=== PATIENT | female | born 1950 | race Caucasian/White ===

== ENCOUNTER 2020-12-18 07:27 | Emergency (ER) | payer OTHER ==
[~2020-12-18] VITALS: Ht 157.5 cm; Wt 86.2 kg
[2020-12-18 07:30] VITALS: BP 159/84
--- NOTE | 2020-12-18 07:33 | NUR ---
PATIENT AMBULATED TO BED 11
[2020-12-18] MEDS ORDERED: KETOROLAC 60 MG/2 ML VIAL IM ONE (07:40)
--- NOTE | 2020-12-18 07:44 | NUR ---
DR. MONSALVE BEDSIDE EVALUATING PT
--- NOTE | 2020-12-18 07:55 | NUR ---
70/F BIB DAUGHTER WITH C/O LEFT SIDED BACK AND CHEST PAIN SINCE YESTERDAY MORNING, STATING TODAY SHE WOKE UP WITH LEFT ARM PAIN WELL. DENIES INJURY, TRAUMA, NUMBNESS OR TINGLING. PT DENIES ANY SOB AT THIS TIME. PT STATED PAIN IS CURRENTLY 8/10 AND "POKING LIKE PAIN." SKIN DRY AND INTACT. EKG DONE ON PATIENT SHOWS NSR. MEDHX: DM, ARTHRITIS ALLERGIES: DENIES
[2020-12-18] MEDS ORDERED: ACET-8386 PO (08:11)
[2020-12-18 08:38] VITALS: BP 159/84
--- NOTE | 2020-12-18 08:39 | NUR ---
Patient discharged with v/s stable. Written and verbal after care instructions given and explained. Patient alert, oriented and verbalized understanding of instructions. Ambulatory with steady gait. All questions addressed prior to discharge. ID band removed. Patient advised to follow up with PMD. Rx of HYDROCODONE/ACETAMINOPHEN given. Patient educated on indication of medication including possible reaction and side effects. Opportunity to ask questions provided and answered.
== END 2020-12-18 08:36 | disposition home or self-care (01) ==
LOC: MED 07:27
DX: R07.89 Other chest pain (principal); M54.9 Dorsalgia, unspecified; M79.602 Pain in left arm; E11.9 Type 2 diabetes mellitus without complications; Z90.49 Acquired absence of other specified parts of digestive tract; Z98.890 Other specified postprocedural states
CPT/HCPCS: 93005; 96372; 99283; J1885

== ENCOUNTER 2020-12-28 06:30 | Emergency (ER) | payer OTHER ==
[~2020-12-28] VITALS: Ht 157.5 cm; Wt 87.5 kg
[~2020-12-28 06:30] MED LIST: ACET-8386 PO
[2020-12-28 06:37] VITALS: BP 135/73
--- NOTE | 2020-12-28 06:44 | NUR ---
patient to bed 12 ambulatory with cane
--- NOTE | 2020-12-28 07:29 | NUR ---
RECEIVED REPORT FROM CHRISTIANO FIGUEROA, ASSUMED CARE AT THIS TIME.
[2020-12-28 07:35] LABS: BASOPHILS % (AUTO) 0.6 % (0.0-2.0); EOSINOPHILS # (AUTO) 0.2 K/uL (0-0.4); EOSINOPHILS % (AUTO) 4.1 % (0.0-4.0); HEMATOCRIT 37.3 % (36-48); HEMOGLOBIN 12.1 g/dL (12.0-16.0); LYMPHOCYTES # (AUTO) 1.3 K/uL (2.5-16.5); LYMPHOCYTES % (AUTO) 27.3 % (20.5-51.1); MEAN CORPUSCULAR HEMOGLOBIN 27 pg (27-31); MEAN CORPUSCULAR HGB CONC 33 g/dL (33-37); MONOCYTES # (AUTO) 0.4 K/uL (0.8-1.0); MONOCYTES % (AUTO) 7.7 % (1.7-9.3); NEUTROPHILS # (AUTO) 2.8 K/uL (1.8-7.7); NEUTROPHILS % (AUTO) 60.3 % (42.2-75.2); PLATELET COUNT (AUTO) 156 K/uL (140-450); RED BLOOD CELL COUNT(AUTO) 4.55 MIL/uL (4.20-5.40); RED CELL DISTRIBUTION WIDTH 13.8 % (11.6-13.7); WHITE BLOOD COUNT (AUTO) 4.6 K/uL (4.8-10.8)
--- NOTE | 2020-12-28 07:46 | NUR ---
ULTRASOUND AT BEDSIDE.
[2020-12-28 08:10] LABS: ALBUMIN 3.3 g/dL (3.4-5.0); ANION GAP 12.6 (8-16); ASPARTATE AMINOTRANSFERASE 17 U/L (15-37); CARBON DIOXIDE 31.4 mmol/L (21-32); CHLORIDE 107 mmol/L (98-107); CREATININE 0.7 mg/dL (0.6-1.3); GLUCOSE 120 mg/dL (74-106); SODIUM SERUM 147 mmol/L (136-145); TOTAL BILIRUBIN 0.3 mg/dL (0.0-1.0); UREA NITROGEN, BLOOD 16 mg/dL (7-18)
[2020-12-28] MEDS ORDERED: CLINDAMYCIN 600 MG in DEXTROSE 5% 50 ML IV ONE (08:30)
[2020-12-28] MEDS ORDERED: CLINDAMYCIN 600 MG/4 ML VIAL ONE (08:40)
--- NOTE | 2020-12-28 08:54 | NUR ---
Blood cultures collected, walked to lab and handed to CPT Rahul
[2020-12-28] MEDS ORDERED: CLIN300C52 PO (11:15)
[2020-12-28] MEDS ORDERED: ACET-8386 PO (11:34)
[2020-12-28 11:42] VITALS: BP 131/58
[2020-12-28] MEDS ORDERED: MORPHINE SULFATE 4 MG/ML SYR ONE (11:48)
[2020-12-28] MEDS ORDERED: MORPHINE SULFATE 4 MG/ML SYR IVP ONE (11:50)
--- NOTE | 2020-12-28 12:31 | NUR ---
Patient discharged with v/s stable. Written and verbal after care instructions ABOUT CELLULITIS given and explained. Patient alert, oriented and verbalized understanding of instructions. Ambulatory with steady gait. All questions addressed prior to discharge. ID band removed. Patient advised to follow up with PMD. Rx of CLINDAMYCIN HCL given. Patient educated on indication of medication including possible reaction and side effects. Opportunity to ask questions provided and answered. Addendum: 12/28/20 at 1303 by [email or web address] AND NORCO 5-325 WAS GIVEN
== END 2020-12-28 12:31 | disposition home or self-care (01) ==
LOC: MED 06:30
DX: L03.115 Cellulitis of right lower limb (principal); E11.9 Type 2 diabetes mellitus without complications; Z79.2 Long term (current) use of antibiotics; Z79.891 Long term (current) use of opiate analgesic
CPT/HCPCS: 36415; 73590; 80053; 85025; 87040; 93971; 96365; 96375; 99285; J2270; J3490; Q0092

== ENCOUNTER 2020-12-30 12:36 | Emergency (ER) | payer OTHER ==
[~2020-12-30] VITALS: Ht 160 cm; Wt 86.8 kg
[~2020-12-30 12:36] MED LIST changes: +CLIN300C52 PO
[2020-12-30 13:04] VITALS: BP 133/87
[2020-12-30] MEDS ORDERED: MORPHINE SULFATE 4 MG/ML SYR IM ONE (13:30)
--- NOTE | 2020-12-30 13:35 | NUR ---
PT TAKEN TO XRAY AT THIS TIME
--- NOTE | 2020-12-30 13:49 | NUR ---
70 Y/O F BIB SELF FOR RECHECK. SEEN HERE 12/28/20 FOR RIGHT LOWER LEG CELLULITIS. BLOOD SUGAR 107 AT THIS TIME. DENIES N/V/D; SKIN IS PINK/WARM/DRY; AAOX4; LUNGS CLEAR BL; HR EVEN AND REGULAR; PT DENIES ANY FEVER, CP, SOB, OR COUGH AT THIS TIME; PATIENT STATES PAIN OF 8/10 AT THIS TIME; VSS; ER MD MADE AWARE OF PT STATUS. PMH: ETTA ORTEGA
[2020-12-30] MEDS ORDERED: LID5T TP (14:17)
[2020-12-30] MEDS ORDERED: NAPR-54 PO (14:17)
[2020-12-30 14:33] VITALS: BP 133/87
--- NOTE | 2020-12-30 14:34 | NUR ---
Patient discharged with v/s stable. Written and verbal after care instructions given MEDICAL SCREENING EXAM and explained. Patient alert, oriented and verbalized understanding of instructions. Ambulatory with steady gait. All questions addressed prior to discharge. ID band removed. Patient advised to follow up with PMD. Rx of NAPROXEN AND LIDOCAINE PATCHES given. Patient educated on indication of medication including possible reaction and side effects. Opportunity to ask questions provided and answered.
== END 2020-12-30 14:33 | disposition home or self-care (01) ==
LOC: MED 12:36
DX: M79.661 Pain in right lower leg (principal); E11.9 Type 2 diabetes mellitus without complications; Z96.653 Presence of artificial knee joint, bilateral; Z98.51 Tubal ligation status; Z98.890 Other specified postprocedural states; Z79.899 Other long term (current) drug therapy; Z79.1 Long term (current) use of non-steroidal anti-inflammatories (NSAID); Z79.891 Long term (current) use of opiate analgesic; Z79.2 Long term (current) use of antibiotics
CPT/HCPCS: 73610; 93971; 96372; 99284; J2270

== ENCOUNTER 2021-01-15 11:11 | Emergency (ER) | payer OTHER ==
[~2021-01-15] VITALS: Ht 162.6 cm; Wt 86.2 kg
[~2021-01-15 11:11] MED LIST changes: +LID5T TP; +NAPR-54 PO
[2021-01-15 11:18] VITALS: BP 136/103
--- NOTE | 2021-01-15 11:25 | NUR ---
Patient ambulated to bed 03 with steady/even gait.
--- NOTE | 2021-01-15 11:35 | NUR ---
70 y/o F BIB family from home c/o bilateral knee and R elbow pain s/p fall at 1000. Patient A&Ox4, ambulatory, states she fell onto cement and landed on both knees and R elbow. Pt states R elbow pain 10/10 sharp/constant, non-radiating that worsens with movement. Limited ROM d/t pain; patient states unable to extend elbow without pain. Pt states tgaking medication cfalled meloxicam without relief to pain. Pt noted with small skin tear to R knee cap; no bleeding noted. Pt denies N/V/D, head/neck/back pain. Denies LOC. Bed locked in lowest position, side rails x 1. PMH/Sx/Meds: arthritis, DM, IBS Meds: IBS meds - meloxicam NKDA Sx: bilateral knee prosthetics
[2021-01-15] MEDS ORDERED: HYDROcodone/APAP 5/325 MG 1 TAB TAB PO ONE (12:10)
--- NOTE | 2021-01-15 12:36 | NUR ---
Patient placed into a gown.
--- NOTE | 2021-01-15 12:43 | NUR ---
Patient transported to [facility] by wheelchair
--- NOTE | 2021-01-15 13:08 | NUR ---
Patient returned from RAD by wheelchair.
[2021-01-15] MEDS ORDERED: ACET-8386 PO (13:45)
--- NOTE | 2021-01-15 14:05 | NUR ---
PT's right arm was splinted with a long posterior and sugar tong splint. ER PA notified and checked splint.
[2021-01-15 14:14] VITALS: BP 130/97
--- NOTE | 2021-01-15 14:15 | NUR ---
Patient discharged with v/s stable. Written and verbal after care instructions given RADIAL HEAD FRACTURE AND RIB CONTUSION and explained. Patient alert, oriented and verbalized understanding of instructions. Ambulatory with steady gait. All questions addressed prior to discharge. ID band removed. Patient advised to follow up with PMD. Rx of NORCO given. Patient educated on indication of medication including possible reaction and side effects. Opportunity to ask questions provided and answered.
== END 2021-01-15 14:15 | disposition home or self-care (01) ==
LOC: MED 11:11
DX: S52.124A Nondisplaced fracture of head of right radius, initial encounter for closed fracture (principal); S20.211A Contusion of right front wall of thorax, initial encounter; E11.9 Type 2 diabetes mellitus without complications; Z96.653 Presence of artificial knee joint, bilateral; Z79.891 Long term (current) use of opiate analgesic; Z79.899 Other long term (current) drug therapy; Z79.2 Long term (current) use of antibiotics; W18.39XA Other fall on same level, initial encounter; Y92.89 Other specified places as the place of occurrence of the external cause; Y93.89 Activity, other specified; Y99.8 Other external cause status
CPT/HCPCS: 29105; 71101; 73060; 73080; 99284

== ENCOUNTER 2021-04-25 08:32 | Emergency (ER) | payer OTHER ==
[~2021-04-25] VITALS: Ht 162.6 cm; Wt 86.2 kg
[2021-04-25 08:35] VITALS: BP 139/66
--- NOTE | 2021-04-25 09:03 | NUR ---
Dr. Trujillo at bedside evaluating patient.
[2021-04-25] MEDS ORDERED: KETOROLAC 30 MG/ML VIAL IM ONE (09:05)
--- NOTE | 2021-04-25 09:11 | NUR ---
70 y/o female came in for right arm pain. Patient states she fractured her arm and was told by specialist to let it heal by itself 3 months ago. Patient's right arm pain is a 10/10 when at movement. Pain restarted x3 days ago after showering. Patient states "she felt her arm lock and the pain started again." Patient denies any falls or bumping against anything.
--- NOTE | 2021-04-25 09:23 | NUR ---
radiology at bedside
--- NOTE | 2021-04-25 09:51 | NUR ---
Shoulder sling applied to right arm. Positive PMSC before and after procedure. Tolerated well.
[2021-04-25] MEDS ORDERED: ACET-8386 PO (10:51)
--- NOTE | 2021-04-25 11:05 | NUR ---
Chart checked and completed. The patient's care was reviewed and supervised by Pierce Garcia, RN, RN.
[2021-04-25 11:09] VITALS: BP 139/66
--- NOTE | 2021-04-25 11:10 | NUR ---
Patient discharged with v/s stable. Written and verbal after care instructions given. Patient alert, oriented and verbalized understanding of instructions. Ambulatory with steady gait. All questions addressed prior to discharge. ID band removed. Patient advised to follow up with PMD. Rx of hydrocodone/acetaminophen given. Opportunity to ask questions provided and answered.
--- NOTE | 2021-04-26 12:56 | NUR ---
SPOKE WITH LELAND FROM XR FOR POSITIVE ELBOW XR RESULTS. DR. CHASE MADE AWARE AT THIS TIME.
== END 2021-04-25 11:10 | disposition home or self-care (01) ==
LOC: MED 08:32
DX: S52.121A Displaced fracture of head of right radius, initial encounter for closed fracture (principal); E11.9 Type 2 diabetes mellitus without complications; Z98.890 Other specified postprocedural states; Z79.899 Other long term (current) drug therapy; X58.XXXA Exposure to other specified factors, initial encounter; Y93.89 Activity, other specified; Y92.89 Other specified places as the place of occurrence of the external cause; Y99.8 Other external cause status
CPT/HCPCS: 73080; 96372; 99283; J1885

== ENCOUNTER 2021-09-09 14:02 | Emergency (ER) | payer OTHER ==
[~2021-09-09] VITALS: Ht 160 cm; Wt 89.4 kg
[2021-09-09 14:29] VITALS: BP 180/68
[2021-09-09] MEDS ORDERED: ACETAMINOPHEN 325 MG TAB PO ONE (14:50)
--- NOTE | 2021-09-09 15:05 | NUR ---
71/F PRESENTS TO ED WITH C/O LOW BACK, LEFT KNEE AND RIGHT ELBOW PAIN S/P TRIP AND FALL X2 DAYS AGO. PATIENT DENIES LOC, HEAD OR NECK INJURY. STATES SHE TOOK TYENOL WITH NO RELIEF.
[2021-09-09] MEDS ORDERED: ACET-8386 PO (15:21)
--- NOTE | 2021-09-09 15:25 | NUR ---
Patient discharged with v/s stable. Written and verbal after care instructions ABOUT ACUTE KNEE PAIN, ACUTE BACK PAIN given and explained. Patient alert, oriented and verbalized understanding of instructions. Ambulatory with steady gait. All questions addressed prior to discharge. ID band removed. Patient advised to follow up with PMD. Rx of NORCO 5-325 given. Patient educated on indication of medication including possible reaction and side effects. Opportunity to ask questions provided and answered.
[2021-09-09] MEDS ORDERED: ACETAMINOPHEN 325 MG TAB ONE ×2 (16:21)
--- NOTE | 2021-09-09 16:24 | NUR ---
Called for patient in lobby, no answer.
--- NOTE | 2021-09-09 16:30 | NUR ---
Maisha nick in [facility], [place] - 09/09/21 at 1709 by MED1 PT CALLED BY PHONE, STATED SHE LEFT WITHOUT D/C PAPERWORK. PAOLA MADE AWARE.
== END 2021-09-09 15:26 | disposition home or self-care (01) ==
LOC: MED 14:02
DX: S39.012A Strain of muscle, fascia and tendon of lower back, initial encounter (principal); S80.02XA Contusion of left knee, initial encounter; M25.521 Pain in right elbow; E11.9 Type 2 diabetes mellitus without complications; Z79.899 Other long term (current) drug therapy; Z98.890 Other specified postprocedural states; W01.0XXA Fall on same level from slipping, tripping and stumbling without subsequent striking against object, initial encounter; Y93.89 Activity, other specified; Y92.89 Other specified places as the place of occurrence of the external cause; Y99.8 Other external cause status
CPT/HCPCS: 72100; 73562; 99284

== ENCOUNTER 2022-01-10 19:25 | Emergency (ER) | payer OTHER ==
[~2022-01-10] VITALS: Ht 162.6 cm; Wt 89.8 kg
[2022-01-10 19:35] VITALS: BP 140/88
--- NOTE | 2022-01-10 19:38 | NUR ---
TO LOBBY A/W BED AMBULATORY
--- NOTE | 2022-01-10 19:50 | NUR ---
SEEN AND EXAMINED BY PAOLA WITH ORDERS AND CARRIED OUT
[2022-01-10] MEDS ORDERED: ACETAMINOPHEN EXTRA STRENGTH 500 MG TAB PO ONE (19:55)
[2022-01-10] MEDS ORDERED: ONDANSETRON 4 MG ODT PO ONE (19:55)
[2022-01-10 20:45] LABS: BASOPHILS % (AUTO) 0.3 % (0.0-2.0); EOSINOPHILS % (AUTO) 2.3 % (0.0-4.0); HEMATOCRIT 38.6 % (36-48); HEMOGLOBIN 12.5 g/dL (12.0-16.0); LYMPHOCYTES % (AUTO) 36.1 % (20.5-51.1); MEAN CORPUSCULAR HEMOGLOBIN 27 pg (27-31); MEAN CORPUSCULAR HGB CONC 32 g/dL (33-37); MEAN CORPUSCULAR VOLUME 82.7 fL (80-94); MONOCYTES # (AUTO) 0.5 K/uL (0.8-1.0); MONOCYTES % (AUTO) 8.4 % (1.7-9.3); NEUTROPHILS % (AUTO) 52.9 % (42.2-75.2); PLATELET COUNT (AUTO) 178 K/uL (140-450); RED BLOOD CELL COUNT(AUTO) 4.67 MIL/uL (4.20-5.40); RED CELL DISTRIBUTION WIDTH 13.9 % (11.6-13.7); WHITE BLOOD COUNT (AUTO) 5.6 K/uL (4.8-10.8)
[2022-01-10 20:46] LABS: EOSINOPHILS # (AUTO) 0.1 K/uL (0-0.4)
[2022-01-10 21:18] LABS: APPEARANCE,URINE CLEAR (CLEAR); BILIRUBIN,URINE NEGATIVE (NEGATIVE); BLOOD, URINE 3+ (NEGATIVE); COLOR,URINE YELLOW (YELLOW); LEUKOCYTE ESTERASE ,URINE NEGATIVE (NEGATIVE); NITRITE, URINE POSITIVE (NEGATIVE); UGLUCOSE NEGATIVE (NEGATIVE)
[2022-01-10] MEDS ORDERED: cefTRIAXone 1,000 MG in LIDOCAINE MPF 1% 2.1 ML IM ONE (21:30)
[2022-01-10 21:37] LABS: RBC,URINE 11-20 (MOD) /HPF (0-5)
[2022-01-10 21:38] LABS: YEAST,URINE None Seen /HPF (None Seen)
[2022-01-10 21:39] LABS: TRICHOMONAS,URINE None Seen /HPF (None Seen)
[2022-01-10] MEDS ORDERED: ONDA-188 PO (22:22)
[2022-01-10] MEDS ORDERED: CEPH-588 PO (22:22)
[2022-01-10] MEDS ORDERED: cefTRIAXone 1,000 MG VIAL ONE (23:44)
[2022-01-10] MEDS ORDERED: LIDOCAINE MPF 1% 5 ML ONE (23:45)
--- NOTE | 2022-01-11 | NUR ---
Patient discharged with v/s stable. Written and verbal after care instructions given and explained. Patient alert, oriented and verbalized understanding of instructions. Ambulatory with steady gait. All questions addressed prior to discharge. ID band removed. Patient advised to follow up with PMD. Rx of KEFLEX, ZOFRAN ODT given. Patient educated on indication of medication including possible reaction and side effects. Opportunity to ask questions provided and answered.
[2022-01-11 00:16] LABS: ALBUMIN 3.7 g/dL (3.4-5.0); ANION GAP 16.6 (8-16); ASPARTATE AMINOTRANSFERASE 44 U/L (15-37); CARBON DIOXIDE 27.8 mmol/L (21-32); CHLORIDE 104 mmol/L (98-107); CREATININE 0.8 mg/dL (0.6-1.3); GLUCOSE 141 mg/dL (74-106); LIPASE 125 U/L (73-393); POTASSIUM 3.4 mmol/L (3.5-5.1); SODIUM SERUM 145 mmol/L (136-145); TOTAL BILIRUBIN 0.2 mg/dL (0.0-1.0); UREA NITROGEN, BLOOD 14 mg/dL (7-18)
== END 2022-01-11 | disposition home or self-care (01) ==
LOC: MED 19:25
DX: N39.0 Urinary tract infection, site not specified (principal); E11.9 Type 2 diabetes mellitus without complications; Z79.4 Long term (current) use of insulin; Z79.899 Other long term (current) drug therapy
CPT/HCPCS: 36415; 80053; 81001; 83690; 85025; 87086; 96372; 99283; J0696; J2001; Q0162

== ENCOUNTER 2022-11-10 08:35 | Emergency (ER) | payer OTHER ==
[~2022-11-10] VITALS: Ht 167.6 cm; Wt 94.1 kg
[~2022-11-10 08:35] MED LIST changes: -ACET-8386 PO; +ACET-8905 PO; +CEPH-588 PO; +ONDA-188 PO
[2022-11-10 09:16] VITALS: BP 112/56; PULSE 63; RESP 18; TEMP 97.8; O2SAT 96
[2022-11-10] MEDS ORDERED: KETOROLAC 30 MG/ML VIAL IM ONE (09:40)
[2022-11-10 09:49] LABS: BILIRUBIN,URINE NEGATIVE (NEGATIVE); BLOOD, URINE NEGATIVE (NEGATIVE); COLOR,URINE YELLOW (YELLOW); LEUKOCYTE ESTERASE ,URINE NEGATIVE (NEGATIVE); NITRITE, URINE POSITIVE (NEGATIVE); PROTEIN,URINE NEGATIVE (NEGATIVE); UGLUCOSE NEGATIVE (NEGATIVE); UROBILINOGEN,URINE 0.2 EU/dL (0.2 - 1)
[2022-11-10 10:00] LABS: APPEARANCE,URINE SLIGHTLY HAZY (CLEAR)
[2022-11-10 10:01] LABS: BACTERIA,URINE 1+ /HPF (None Seen); RBC,URINE 0-5 /HPF (0-5); WBC,URINE 0-5 /HPF (0-5)
[2022-11-10 10:02] LABS: YEAST,URINE Rare /HPF (None Seen)
[2022-11-10 10:31] LABS: BASOPHILS % (AUTO) 0.5 % (0.0-2.0); EOSINOPHILS # (AUTO) 0.2 K/uL (0-0.4); HEMATOCRIT 38.3 % (36-48); HEMOGLOBIN 12.4 g/dL (12.0-16.0); LYMPHOCYTES # (AUTO) 1.4 K/uL (2.5-16.5); LYMPHOCYTES % (AUTO) 26.4 % (20.5-51.1); MEAN CORPUSCULAR HEMOGLOBIN 27 pg (27-31); MEAN CORPUSCULAR HGB CONC 32 g/dL (33-37); MEAN CORPUSCULAR VOLUME 81.8 fL (80-94); MONOCYTES # (AUTO) 0.3 K/uL (0.8-1.0); MONOCYTES % (AUTO) 6.7 % (1.7-9.3); NEUTROPHILS # (AUTO) 3.2 K/uL (1.8-7.7); NEUTROPHILS % (AUTO) 62.4 % (42.2-75.2); PLATELET COUNT (AUTO) 160 K/uL (140-450); RED BLOOD CELL COUNT(AUTO) 4.68 MIL/uL (4.20-5.40); RED CELL DISTRIBUTION WIDTH 14.3 % (11.6-13.7); WHITE BLOOD COUNT (AUTO) 5.1 K/uL (4.8-10.8)
[2022-11-10 10:58] LABS: ALANINE AMINOTRANSFERASE 54 U/L (12-78); ALBUMIN 3.7 g/dL (3.4-5.0); ALKALINE PHOSPHATASE 122 U/L (50-136); ANION GAP 8.7 (8-16); ASPARTATE AMINOTRANSFERASE 44 U/L (15-37); CALCIUM 9.8 mg/dL (8.5-10.1); CARBON DIOXIDE 31.9 mmol/L (21-32); CHLORIDE 105 mmol/L (98-107); CREATININE 0.7 mg/dL (0.6-1.3); GLUCOSE 104 mg/dL (74-106); LIPASE 38 U/L (16-77); POTASSIUM 4.6 mmol/L (3.5-5.1); SODIUM SERUM 141 mmol/L (136-145); TOTAL BILIRUBIN 0.3 mg/dL (0.0-1.0); TOTAL PROTEIN, SERUM 6.9 g/dL (6.4-8.2); UREA NITROGEN, BLOOD 15 mg/dL (7-18)
[2022-11-10] MEDS ORDERED: CEPH-588 PO (11:34)
[2022-11-10] MEDS ORDERED: BEN10 PO (11:34)
[2022-11-10 11:42] VITALS: BP 103/48; PULSE 78; RESP 18; TEMP 98; O2SAT 98
== END 2022-11-10 11:43 | disposition home or self-care (01) ==
LOC: MED 08:35
DX: N39.0 Urinary tract infection, site not specified (principal); D25.9 Leiomyoma of uterus, unspecified; R91.1 Solitary pulmonary nodule; K76.89 Other specified diseases of liver; K42.9 Umbilical hernia without obstruction or gangrene; I70.0 Atherosclerosis of aorta; E11.9 Type 2 diabetes mellitus without complications; Z79.899 Other long term (current) drug therapy; Z79.2 Long term (current) use of antibiotics; Z79.1 Long term (current) use of non-steroidal anti-inflammatories (NSAID)
CPT/HCPCS: 36415; 70450; 74176; 80053; 81001; 83690; 85025; 96372; 99285; J1885

== ENCOUNTER 2023-07-12 10:04 | Emergency (ER) | payer OTHER ==
[~2023-07-12] VITALS: Ht 152.4 cm; Wt 91.6 kg
[~2023-07-12 10:04] MED LIST changes: +BEN10 PO; +NAPR-337 PO; -NAPR-54 PO
[2023-07-12 10:17] VITALS: BP 103/42; PULSE 65; RESP 20; TEMP 97.7; O2SAT 100
[2023-07-12 10:56] LABS: BASOPHILS % (AUTO) 0.4 % (0.0-2.0); EOSINOPHILS # (AUTO) 0.2 K/uL (0-0.4); EOSINOPHILS % (AUTO) 3.6 % (0.0-4.0); HEMATOCRIT 37.5 % (36-48); HEMOGLOBIN 12.2 g/dL (12.0-16.0); LYMPHOCYTES # (AUTO) 1.3 K/uL (2.5-16.5); LYMPHOCYTES % (AUTO) 24.1 % (20.5-51.1); MEAN CORPUSCULAR HEMOGLOBIN 26 pg (27-31); MEAN CORPUSCULAR HGB CONC 33 g/dL (33-37); MEAN CORPUSCULAR VOLUME 79.9 fL (80-94); MONOCYTES # (AUTO) 0.3 K/uL (0.8-1.0); MONOCYTES % (AUTO) 4.9 % (1.7-9.3); NEUTROPHILS # (AUTO) 3.6 K/uL (1.8-7.7); PLATELET COUNT (AUTO) 149 K/uL (140-450); RED BLOOD CELL COUNT(AUTO) 4.69 MIL/uL (4.20-5.40); RED CELL DISTRIBUTION WIDTH 13.9 % (11.6-13.7); WHITE BLOOD COUNT (AUTO) 5.4 K/uL (4.8-10.8)
[2023-07-12 11:05] LABS: ANION GAP 10.7 (8-16); CALCIUM 9.3 mg/dL (8.5-10.1); CARBON DIOXIDE 29.2 mmol/L (21-32); CHLORIDE 101 mmol/L (98-107); CREATININE 0.7 mg/dL (0.6-1.3); GLUCOSE 217 mg/dL (74-106); POTASSIUM 3.9 mmol/L (3.5-5.1); SODIUM SERUM 137 mmol/L (136-145); UREA NITROGEN, BLOOD 10 mg/dL (7-18)
[2023-07-12] MEDS ORDERED: MECLIZINE 25 MG TAB ONE (11:42)
[2023-07-12] MEDS: MECLIZINE 25 MG TAB PO ONE (11:44)
[2023-07-12] MEDS ORDERED: MECL-303 PO (12:23)
[2023-07-12 12:50] VITALS: BP 116/57; PULSE 61; RESP 20; TEMP 97.7; O2SAT 100
== END 2023-07-12 12:50 | disposition home or self-care (01) ==
LOC: MED 10:04
DX: H81.392 Other peripheral vertigo, left ear (principal); M25.562 Pain in left knee; E11.9 Type 2 diabetes mellitus without complications; Z79.4 Long term (current) use of insulin; Z79.899 Other long term (current) drug therapy
CPT/HCPCS: 36415; 73562; 80048; 84484; 85025; 93005; 99285; J8597

== ENCOUNTER 2023-11-08 10:57 | Emergency (ER) | payer OTHER ==
[~2023-11-08] VITALS: Ht 162.6 cm; Wt 86.2 kg
[~2023-11-08 10:57] MED LIST changes: +MECL-303 PO
[2023-11-08 11:10] VITALS: BP 117/61; PULSE 62; RESP 17; TEMP 97.8; O2SAT 97
[2023-11-08] MEDS: KETOROLAC 60 MG/2 ML VIAL IM ONE (12:52)
[2023-11-08 13:06] VITALS: BP 132/61; PULSE 69; RESP 17; TEMP 97.8; O2SAT 97
[2023-11-08] MEDS ORDERED: IBUP-2213 PO (14:04)
== END 2023-11-08 14:15 | disposition home or self-care (01) ==
LOC: MED 10:57
DX: S13.4XXA Sprain of ligaments of cervical spine, initial encounter (principal); S20.211A Contusion of right front wall of thorax, initial encounter; M25.521 Pain in right elbow; M25.561 Pain in right knee; M25.562 Pain in left knee; E11.9 Type 2 diabetes mellitus without complications; I10 Essential (primary) hypertension; Z98.890 Other specified postprocedural states; Z79.899 Other long term (current) drug therapy; W01.198A Fall on same level from slipping, tripping and stumbling with subsequent striking against other object, initial encounter; Y92.89 Other specified places as the place of occurrence of the external cause; Y93.89 Activity, other specified; Y99.8 Other external cause status
CPT/HCPCS: 71101; 72040; 73080; 73562; 96372; 99284; J1885; Q0092